=== PATIENT | female | born 1930 | race Caucasian/White ===

== ENCOUNTER 2020-05-18 09:20 | Observation (INO) ==
[2020-05-18] MEDS ORDERED: Acetaminophen 325 MG TABLET PO PRN (11:08)
[2020-05-18] MEDS ORDERED: Naloxone 0.4 MG/ML INJ IVP PRN (11:08)
[2020-05-18] MEDS ORDERED: Ondansetron ODT 4 MG TAB.RAPDIS SL PRN (11:08)
[2020-05-18 11:22] LABS: Basophils % 0.2 %; Eosinophils # 0.1 K/mcL (0.0-0.6); Hematocrit 43.2 % (35.3-44.9); Hemoglobin 14.1 g/dL (11.5-15.4); Immature Granulocytes % 0.2 % (0-4); Lymphocytes # 1.4 K/mcL (0.6-4.6); Mean Corpuscular HGB Conc 32.6 g/dL (31.6-35.5); Mean Corpuscular Hemoglobin 28.4 pg (28.0-33.3); Mean Corpuscular Volume 87.1 fL (83.0-100.0); Mean Platelet Volume 11.7 fL (9.4-12.4); Monocytes # 0.7 K/mcL (0.0-1.3); Monocytes % 6.4 %; Neutrophils # 7.9 K/mcL (1.6-8.9); Platelet Count 144 K/mcL (140-400); Red Blood Count 4.96 M/mcL (3.82-4.97); Red Cell Distribution Width 14.3 % (11.5-14.5); Segmented Neutrophils % 78.2 %; White Blood Count 10.1 K/mcL (4.3-11.1)
[2020-05-18 11:40] LABS: BUN/Creatinine Ratio 16 (6-26); Blood Urea Nitrogen 16 mg/dL (8-23); Calcium 9.7 mg/dL (8.6-10.3); Carbon Dioxide 26 mEq/L (23-29); Chloride 102 mEq/L (98-107); Glucose 115 mg/dL (70-105); Osmolality,Calculated 290 (280-300); Sodium 139 mEq/L (136-145); eGFR For African Americans > 60 (> 60); eGFR For Non-African Americans 51 (> 60)
[2020-05-18 12:54] LABS: Chol/HDL Ratio 3.6 (0-4.9)
[2020-05-18 13:24] LABS: Thyroid Stimulating Hormone 1.69 mcIU/mL (0.340-5.600)
[2020-05-18] MEDS: amLODIPine 5 MG TABLET PO SCH (14:32)
[2020-05-18] MEDS: lisinopriL 10 MG TABLET PO SCH (14:33)
[2020-05-18] MEDS ORDERED: Ketorolac 15 MG/ML VIAL IVP PRN (18:28)
[2020-05-18 21:15] LABS: Creatinine,Urine 78 mg/dL; Microalbum/Creatinine Ratio,Ur 140 mcg/mg (Less than 30); Microalbumin,Urine 109 mg/L; Protein/Creatinine Ratio,Urine 0.29 mg/mg (0.00-0.20)
[2020-05-18 21:42] LABS: Folate 15.5 ng/mL (3.0-16.0)
[2020-05-19 07:12] LABS: Hematocrit 42.5 % (35.3-44.9); Hemoglobin 13.6 g/dL (11.5-15.4); Mean Corpuscular Hemoglobin 28.5 pg (28.0-33.3); Mean Corpuscular Volume 88.9 fL (83.0-100.0); Mean Platelet Volume 11.7 fL (9.4-12.4); Platelet Count 116 K/mcL (140-400); Red Blood Count 4.78 M/mcL (3.82-4.97); Red Cell Distribution Width 14.4 % (11.5-14.5); White Blood Count 8.1 K/mcL (4.3-11.1)
[2020-05-19 07:44] LABS: Calcium 9.4 mg/dL (8.6-10.3); Chol/HDL Ratio 3.5 (0-4.9); Potassium 3.8 mEq/L (3.5-5.1)
[2020-05-19] MEDS: lisinopriL 10 MG TABLET PO SCH (07:44)
[2020-05-19] MEDS: Metoprolol XL (24 HR) Succ 50 MG TAB.ER.24H PO SCH (07:44)
[2020-05-19] MEDS: amLODIPine 5 MG TABLET PO SCH (07:44)
[2020-05-19] MEDS ORDERED: *HR* Enoxaparin 40 MG/0.4 ML SYRINGE SQ SCH (09:15)
[2020-05-19] MEDS ORDERED: Ketorolac 30 MG/ML VIAL IVP PRN (10:00)
[2020-05-19] MEDS: *HR* Enoxaparin 30 MG/0.3 ML SYRINGE SQ SCH (10:37)
[2020-05-19 17:01] LABS: Bilirubin,Urine Negative (Negative); Blood,Urine Negative (Negative); Clarity,Urine Clear (Clear); Color,Urine Yellow (Yellow); Glucose,Urine (UA) Normal (Normal); Ketones,Urine Negative (Negative); Leukocyte Esterase,Urine Negative (Negative); Nitrite,Urine Negative (Negative); PH,Urine 5.5 pH Units (5.0-8.0); Protein,Urine 30 mg/dL (Neg-Trace); Specific Gravity,Urine >= 1.030 (1.010-1.025); Urobilinogen,Urine Normal (Normal)
[2020-05-19 17:10] LABS: Calcium Oxalate Crystals,Urine Present; RBC,Urine 0-3 per hpf (0-3); Squamous Epithelial Cell,Urine Few per hpf (None-Few); WBC,Urine 0-3 per hpf (0-3)
[2020-05-19 17:11] LABS: Bacteria,Urine Few per hpf (None-Few)
[2020-05-20] MEDS ORDERED: *HR* Enoxaparin 30 MG/0.3 ML SYRINGE SQ SCH (06:00)
[2020-05-20] MEDS ORDERED: *HR* Enoxaparin 40 MG/0.4 ML SYRINGE SQ SCH (06:00)
[2020-05-20] MEDS: *HR* Enoxaparin 30 MG/0.3 ML SYRINGE SQ SCH (06:04)
[2020-05-20] MEDS: lisinopriL 10 MG TABLET PO SCH (08:20)
[2020-05-20] MEDS: amLODIPine 5 MG TABLET PO SCH (08:20)
[2020-05-20] MEDS: Metoprolol XL (24 HR) Succ 50 MG TAB.ER.24H PO SCH (08:20)
[2020-05-21] MEDS: *HR* Enoxaparin 30 MG/0.3 ML SYRINGE SQ SCH (06:14)
[2020-05-21] MEDS: lisinopriL 10 MG TABLET PO SCH (08:01)
[2020-05-21] MEDS: Metoprolol XL (24 HR) Succ 50 MG TAB.ER.24H PO SCH (08:01)
[2020-05-21] MEDS: amLODIPine 5 MG TABLET PO SCH (08:01)
[2020-05-21 08:25] LABS: Basophils % 0.3 %; Eosinophils # 0.2 K/mcL (0.0-0.6); Eosinophils % 2.5 %; Hematocrit 42.6 % (35.3-44.9); Hemoglobin 13.4 g/dL (11.5-15.4); Immature Granulocytes % 0.2 % (0-4); Lymphocytes # 2.2 K/mcL (0.6-4.6); Lymphocytes % 23.5 %; Mean Corpuscular HGB Conc 31.5 g/dL (31.6-35.5); Mean Corpuscular Volume 89.1 fL (83.0-100.0); Mean Platelet Volume 11.4 fL (9.4-12.4); Monocytes # 0.8 K/mcL (0.0-1.3); Monocytes % 8.6 %; Neutrophils # 5.9 K/mcL (1.6-8.9); Platelet Count 126 K/mcL (140-400); Red Blood Count 4.78 M/mcL (3.82-4.97); Red Cell Distribution Width 14.3 % (11.5-14.5); Segmented Neutrophils % 64.9 %; White Blood Count 9.2 K/mcL (4.3-11.1)
[2020-05-21 08:45] LABS: Calcium 9.5 mg/dL (8.6-10.3); Potassium 4.4 mEq/L (3.5-5.1)
[2020-05-21] MEDS: Cholecalciferol (D-3) 1,000 UNIT (25MCG) TABLET PO SCH (09:31)
[2020-05-22] MEDS: *HR* Enoxaparin 30 MG/0.3 ML SYRINGE SQ SCH (05:40)
[2020-05-22] MEDS: amLODIPine 5 MG TABLET PO SCH (08:22)
[2020-05-22] MEDS: Metoprolol XL (24 HR) Succ 50 MG TAB.ER.24H PO SCH (08:22)
[2020-05-22] MEDS: lisinopriL 10 MG TABLET PO SCH (08:23)
[2020-05-22] MEDS: Cholecalciferol (D-3) 1,000 UNIT (25MCG) TABLET PO SCH (08:23)
[2020-05-22 11:26] VITALS: BP 154/84
== END 2020-05-22 15:20 | disposition other institution (70) ==
LOC: INPPIK 09:20 → EMEROOPIK 09:20 → INPPIK 11:30
PROVIDERS: ADMIT Family Medicine; ATTEND Family Medicine

== ENCOUNTER 2020-05-22 14:11 | Inpatient (IN) ==
[2020-05-22] MEDS ORDERED: Acetaminophen 325 MG TABLET PO PRN (14:47)
[2020-05-22] MEDS ORDERED: Ketorolac 15 MG/ML VIAL IVP PRN (15:35)
[2020-05-23] MEDS: *HR* Enoxaparin 30 MG/0.3 ML SYRINGE SQ SCH (06:27)
[2020-05-23 07:17] LABS: Basophils % 0.4 %; Eosinophils # 0.3 K/mcL (0.0-0.6); Eosinophils % 3.6 %; Hematocrit 41.4 % (35.3-44.9); Hemoglobin 12.8 g/dL (11.5-15.4); Immature Granulocytes % 0.3 % (0-4); Lymphocytes # 2.1 K/mcL (0.6-4.6); Lymphocytes % 26.4 %; Mean Corpuscular HGB Conc 30.9 g/dL (31.6-35.5); Mean Corpuscular Hemoglobin 28.7 pg (28.0-33.3); Mean Corpuscular Volume 92.8 fL (83.0-100.0); Mean Platelet Volume 12.7 fL (9.4-12.4); Monocytes # 0.8 K/mcL (0.0-1.3); Monocytes % 10.2 %; Neutrophils # 4.6 K/mcL (1.6-8.9); Platelet Count 109 K/mcL (140-400); Red Blood Count 4.46 M/mcL (3.82-4.97); Red Cell Distribution Width 14.4 % (11.5-14.5); Segmented Neutrophils % 59.1 %; White Blood Count 7.8 K/mcL (4.3-11.1)
[2020-05-23 07:32] LABS: Calcium 9.3 mg/dL (8.6-10.3); Potassium 4.3 mEq/L (3.5-5.1)
[2020-05-23] MEDS: lisinopriL 10 MG TABLET PO SCH (07:55)
[2020-05-23] MEDS: amLODIPine 5 MG TABLET PO SCH (07:56)
[2020-05-23] MEDS: Metoprolol XL (24 HR) Succ 50 MG TAB.ER.24H PO SCH (07:56)
[2020-05-23] MEDS: Cholecalciferol (D-3) 1,000 UNIT (25MCG) TABLET PO SCH (07:57)
[2020-05-23] MEDS ORDERED: Ibuprofen 400 MG TABLET PO PRN (17:04)
[2020-05-24] MEDS: *HR* Enoxaparin 30 MG/0.3 ML SYRINGE SQ SCH (05:29)
[2020-05-24] MEDS: Metoprolol XL (24 HR) Succ 50 MG TAB.ER.24H PO SCH (08:14)
[2020-05-24] MEDS: amLODIPine 5 MG TABLET PO SCH (08:15)
[2020-05-24] MEDS: Cholecalciferol (D-3) 1,000 UNIT (25MCG) TABLET PO SCH (08:15)
[2020-05-24] MEDS: lisinopriL 10 MG TABLET PO SCH (08:15)
[2020-05-24] MEDS: polyethylene glycoL 3350 17 GM POWD.PACK PO PRN (09:38)
[2020-05-25] MEDS: *HR* Enoxaparin 30 MG/0.3 ML SYRINGE SQ SCH (05:00)
[2020-05-25] MEDS: Metoprolol XL (24 HR) Succ 50 MG TAB.ER.24H PO SCH (08:02)
[2020-05-25] MEDS: Cholecalciferol (D-3) 1,000 UNIT (25MCG) TABLET PO SCH (08:02)
[2020-05-25] MEDS: lisinopriL 10 MG TABLET PO SCH (08:03)
[2020-05-25] MEDS: polyethylene glycoL 3350 17 GM POWD.PACK PO PRN (08:03)
[2020-05-25] MEDS: amLODIPine 5 MG TABLET PO SCH (08:03)
[2020-05-26] MEDS: *HR* Enoxaparin 30 MG/0.3 ML SYRINGE SQ SCH (06:01)
[2020-05-26] MEDS: amLODIPine 5 MG TABLET PO SCH (08:01)
[2020-05-26] MEDS: Cholecalciferol (D-3) 1,000 UNIT (25MCG) TABLET PO SCH (08:03)
[2020-05-26] MEDS: Metoprolol XL (24 HR) Succ 50 MG TAB.ER.24H PO SCH (08:04)
[2020-05-26] MEDS: lisinopriL 10 MG TABLET PO SCH (08:04)
[2020-05-27] MEDS: *HR* Enoxaparin 30 MG/0.3 ML SYRINGE SQ SCH (06:44)
[2020-05-27] MEDS: lisinopriL 10 MG TABLET PO SCH (08:35)
[2020-05-27] MEDS: Cholecalciferol (D-3) 1,000 UNIT (25MCG) TABLET PO SCH (08:35)
[2020-05-27] MEDS: Metoprolol XL (24 HR) Succ 50 MG TAB.ER.24H PO SCH (08:36)
[2020-05-27] MEDS: amLODIPine 5 MG TABLET PO SCH (08:36)
[2020-05-28] MEDS: *HR* Enoxaparin 30 MG/0.3 ML SYRINGE SQ SCH (05:31)
[2020-05-28 08:00] LABS: Basophils % 0.5 %; Eosinophils # 0.3 K/mcL (0.0-0.6); Eosinophils % 4.3 %; Hematocrit 40.4 % (35.3-44.9); Hemoglobin 12.6 g/dL (11.5-15.4); Immature Granulocytes % 0.3 % (0-4); Lymphocytes # 1.5 K/mcL (0.6-4.6); Lymphocytes % 23.4 %; Mean Corpuscular HGB Conc 31.2 g/dL (31.6-35.5); Mean Corpuscular Hemoglobin 27.9 pg (28.0-33.3); Mean Corpuscular Volume 89.6 fL (83.0-100.0); Mean Platelet Volume 12.6 fL (9.4-12.4); Monocytes # 0.7 K/mcL (0.0-1.3); Monocytes % 10.4 %; Neutrophils # 3.8 K/mcL (1.6-8.9); Platelet Count 155 K/mcL (140-400); Red Blood Count 4.51 M/mcL (3.82-4.97); Red Cell Distribution Width 14.3 % (11.5-14.5); Segmented Neutrophils % 61.1 %; White Blood Count 6.3 K/mcL (4.3-11.1)
[2020-05-28 08:16] LABS: Calcium 9.3 mg/dL (8.6-10.3); Potassium 4.2 mEq/L (3.5-5.1)
[2020-05-28] MEDS: amLODIPine 5 MG TABLET PO SCH (08:58)
[2020-05-28] MEDS: Cholecalciferol (D-3) 1,000 UNIT (25MCG) TABLET PO SCH (08:59)
[2020-05-28] MEDS: lisinopriL 10 MG TABLET PO SCH (09:00)
[2020-05-28] MEDS: Metoprolol XL (24 HR) Succ 50 MG TAB.ER.24H PO SCH (09:00)
[2020-05-29] MEDS: *HR* Enoxaparin 30 MG/0.3 ML SYRINGE SQ SCH (05:42)
[2020-05-29] MEDS: Cholecalciferol (D-3) 1,000 UNIT (25MCG) TABLET PO SCH (08:18)
[2020-05-29] MEDS: lisinopriL 10 MG TABLET PO SCH (08:18)
[2020-05-29] MEDS: amLODIPine 5 MG TABLET PO SCH (08:18)
[2020-05-29] MEDS: Metoprolol XL (24 HR) Succ 50 MG TAB.ER.24H PO SCH (08:18)
[2020-05-30] MEDS: *HR* Enoxaparin 30 MG/0.3 ML SYRINGE SQ SCH (05:40)
[2020-05-30] MEDS: amLODIPine 5 MG TABLET PO SCH (08:08)
[2020-05-30] MEDS: lisinopriL 10 MG TABLET PO SCH (08:08)
[2020-05-30] MEDS: Metoprolol XL (24 HR) Succ 50 MG TAB.ER.24H PO SCH (08:08)
[2020-05-30] MEDS: Cholecalciferol (D-3) 1,000 UNIT (25MCG) TABLET PO SCH (08:09)
[2020-05-30] MEDS: Ondansetron ODT 4 MG TAB.RAPDIS SL PRN (08:12)
[2020-05-31] MEDS: *HR* Enoxaparin 30 MG/0.3 ML SYRINGE SQ SCH (05:31)
[2020-05-31] MEDS: Ondansetron ODT 4 MG TAB.RAPDIS SL PRN (05:31)
[2020-05-31] MEDS: amLODIPine 5 MG TABLET PO SCH (08:32)
[2020-05-31] MEDS: Cholecalciferol (D-3) 1,000 UNIT (25MCG) TABLET PO SCH (08:32)
[2020-05-31] MEDS: Metoprolol XL (24 HR) Succ 50 MG TAB.ER.24H PO SCH (08:33)
[2020-05-31] MEDS: lisinopriL 10 MG TABLET PO SCH (08:33)
[2020-06-01] MEDS: *HR* Enoxaparin 30 MG/0.3 ML SYRINGE SQ SCH (06:50)
[2020-06-01] MEDS: Cholecalciferol (D-3) 1,000 UNIT (25MCG) TABLET PO SCH (08:41)
[2020-06-01] MEDS: Metoprolol XL (24 HR) Succ 50 MG TAB.ER.24H PO SCH (08:41)
[2020-06-01] MEDS: lisinopriL 10 MG TABLET PO SCH (08:42)
[2020-06-01] MEDS: amLODIPine 5 MG TABLET PO SCH (08:42)
[2020-06-01] MEDS: Ondansetron ODT 4 MG TAB.RAPDIS SL PRN (08:45)
[2020-06-02] MEDS: Ondansetron ODT 4 MG TAB.RAPDIS SL PRN (05:35)
[2020-06-02] MEDS: *HR* Enoxaparin 30 MG/0.3 ML SYRINGE SQ SCH (05:35)
[2020-06-02] MEDS: lisinopriL 10 MG TABLET PO SCH (08:33)
[2020-06-02] MEDS: amLODIPine 5 MG TABLET PO SCH (08:34)
[2020-06-02] MEDS: Metoprolol XL (24 HR) Succ 50 MG TAB.ER.24H PO SCH (08:34)
[2020-06-02] MEDS: Cholecalciferol (D-3) 1,000 UNIT (25MCG) TABLET PO SCH (08:34)
[2020-06-03] MEDS: *HR* Enoxaparin 30 MG/0.3 ML SYRINGE SQ SCH (06:56)
[2020-06-03] MEDS: Ondansetron ODT 4 MG TAB.RAPDIS SL PRN (06:58)
[2020-06-03] MEDS: polyethylene glycoL 3350 17 GM POWD.PACK PO PRN (08:28)
[2020-06-03] MEDS: Metoprolol XL (24 HR) Succ 50 MG TAB.ER.24H PO SCH (08:32)
[2020-06-03] MEDS: amLODIPine 5 MG TABLET PO SCH (08:32)
[2020-06-03] MEDS: lisinopriL 10 MG TABLET PO SCH (08:32)
[2020-06-03] MEDS: Cholecalciferol (D-3) 1,000 UNIT (25MCG) TABLET PO SCH (09:27)
[2020-06-04] MEDS: *HR* Enoxaparin 30 MG/0.3 ML SYRINGE SQ SCH (06:35)
[2020-06-04] MEDS: Cholecalciferol (D-3) 1,000 UNIT (25MCG) TABLET PO SCH (08:46)
[2020-06-04] MEDS: amLODIPine 5 MG TABLET PO SCH (08:46)
[2020-06-04] MEDS: Metoprolol XL (24 HR) Succ 50 MG TAB.ER.24H PO SCH (08:46)
[2020-06-04] MEDS: lisinopriL 10 MG TABLET PO SCH (08:46)
[2020-06-05] MEDS: *HR* Enoxaparin 30 MG/0.3 ML SYRINGE SQ SCH (05:48)
[2020-06-05] MEDS: Ondansetron ODT 4 MG TAB.RAPDIS SL PRN (05:48)
[2020-06-05 07:34] LABS: Basophils % 0.3 %; Eosinophils # 0.3 K/mcL (0.0-0.6); Eosinophils % 4.2 %; Hematocrit 41.3 % (35.3-44.9); Hemoglobin 12.9 g/dL (11.5-15.4); Immature Granulocytes % 0.2 % (0-4); Lymphocytes % 33.7 %; Mean Corpuscular HGB Conc 31.2 g/dL (31.6-35.5); Mean Corpuscular Volume 89.8 fL (83.0-100.0); Mean Platelet Volume 12.9 fL (9.4-12.4); Monocytes # 0.6 K/mcL (0.0-1.3); Monocytes % 9.5 %; Neutrophils # 3.1 K/mcL (1.6-8.9); Platelet Count 134 K/mcL (140-400); Segmented Neutrophils % 52.1 %
[2020-06-05 07:48] LABS: Calcium 9.3 mg/dL (8.6-10.3); Potassium 4.2 mEq/L (3.5-5.1)
[2020-06-05] MEDS: Metoprolol XL (24 HR) Succ 50 MG TAB.ER.24H PO SCH (08:37)
[2020-06-05] MEDS: Cholecalciferol (D-3) 1,000 UNIT (25MCG) TABLET PO SCH (08:37)
[2020-06-05] MEDS: lisinopriL 10 MG TABLET PO SCH (08:38)
[2020-06-05] MEDS: amLODIPine 5 MG TABLET PO SCH (08:38)
[2020-06-06] MEDS: *HR* Enoxaparin 30 MG/0.3 ML SYRINGE SQ SCH (06:00)
[2020-06-06] MEDS: Ondansetron ODT 4 MG TAB.RAPDIS SL PRN (06:00)
[2020-06-06 06:42] VITALS: BP 126/72
[2020-06-06] MEDS: Metoprolol XL (24 HR) Succ 50 MG TAB.ER.24H PO SCH (08:03)
[2020-06-06] MEDS: Cholecalciferol (D-3) 1,000 UNIT (25MCG) TABLET PO SCH (08:03)
[2020-06-06] MEDS: amLODIPine 5 MG TABLET PO SCH (08:03)
[2020-06-06] MEDS: lisinopriL 10 MG TABLET PO SCH (08:04)
== END 2020-06-06 15:00 | disposition home health service (06) | DRG 559 ==
LOC: INPPIK 15:23
PROVIDERS: ADMIT Family Medicine; ATTEND Family Medicine